=== PATIENT | male | born 1985 | race Hispanic/Latino ===

== ENCOUNTER 2021-03-24 12:03 | Emergency (ER) | payer OTHER, SELFPAY ==
[~2021-03-24] VITALS: Ht 172.7 cm; Wt 77.1 kg
[2021-03-24] MEDS ORDERED: FAMOTIDINE 20MG VIAL IV STA (13:10)
[2021-03-24] MEDS ORDERED: CEFTRIAXONE 1G VIAL 1 GM in 0.9%NACL 100ML 100 ML IV ONE (13:30)
[2021-03-24] MEDS ORDERED: ALBUTEROL INHALER 90MCG/INH IH SCH (13:30)
[2021-03-24] MEDS ORDERED: CEFTRIAXONE 1G VIAL IVP SCH (13:30)
[2021-03-24] MEDS ORDERED: SOLU-MEDROL 125MG VIAL IVP ONE (13:30)
[2021-03-24 13:52] LABS: BASOPHILS % (AUTO) 0.3 % (0.0-5.0); HEMATOCRIT 44.6 % (42-54); LYMPHOCYTES % (AUTO) 28.9 % (21.0-51.0); MEAN CORPUSCULAR HEMOGLOBIN 30.7 pg (27.0-33.0); MEAN CORPUSCULAR VOLUME 87.8 fL (79-99); MONOCYTES % (AUTO) 10.2 % (3.0-13.0); NEUTROPHILS % (AUTO) 60.1 % (40.0-77.0); PLATELET COUNT (AUTO) 163 K/uL (130-400); RED BLOOD CELL COUNT(AUTO) 5.08 MIL/uL (4.50-6.20); RED CELL DISTRIBUTION WIDTH 11.7 % (11.0-15.5); WHITE BLOOD COUNT (AUTO) 3.9 K/uL (4.8-10.8)
[2021-03-24 14:02] LABS: CREATININE 1.1 mg/dL (0.5-1.5); POTASSIUM 3.6 mmol/L (3.5-5.1)
[2021-03-24 14:06] LABS: ALBUMIN 3.1 g/dL (3.5-5.0); BILIRUBIN,TOTAL 0.6 mg/dL (0.2-1.0); TOTAL PROTEIN, SERUM 7.9 g/dL (6.0-8.3)
[2021-03-24] MEDS ORDERED: METH4TAB3 PO (14:16)
[2021-03-24] MEDS ORDERED: ALBU6.7H9 IH (14:16)
[2021-03-24] MEDS ORDERED: AZIT1PAC PO (14:16)
[2021-03-24 14:36] VITALS: BP 95/63
[2021-03-24] MEDS ORDERED: FAMOTIDINE 20MG VIAL IV ONE (14:38)
== END 2021-03-24 14:59 | disposition home or self-care (01) ==
LOC: EDH 12:03
DX: U07.1 COVID-19 (principal); Z79.899 Other long term (current) drug therapy; Z98.890 Other specified postprocedural states
CPT/HCPCS: 36415; 71045; 80053; 85025; 96374; 96375; 99284; J0696; J2930; J3490